=== PATIENT | male | born 1975 | race Two or more races ===

== ENCOUNTER 2016-12-28 09:39 | Emergency (ER) | payer OTHER ==
[2016-12-28 09:50] VITALS: BP 136/77; PULSE 82; TEMP 98; BMI 22.9
[2016-12-28] MEDS ORDERED: IBUPROFEN 600 MG TABLET (FP) PO ONE ×2 (11:31→11:34)
--- NOTE | 2016-12-28 13:08 | PDOC ---
History of Present Illness - General Chief Complaint: Injury Stated Complaint: RT SIDE PAIN Time Seen by Provider: 12/28/16 11:04 History Source: Patient Exam Limitations: No Limitations - History of Present Illness Initial Comments: 12/28/16 13:04 CC right chest wall pain post heavy work object fell on same yesterday Occurred: reports: yesterday Severity: reports: moderate Pain Location: reports: chest Method of Injury: Yes: direct blow Past History - Past Medical History Allergies/Adverse Reactions: Allergies Allergy/AdvReac Type Severity Reaction Status Date / Time No Known Allergies Allergy Verified 12/28/16 09:44 Home Medications: Ambulatory Orders NK [No Known Home Medication] 12/28/16 Other medical history: none - Psycho/Social/Smoking Cessation Hx Anxiety: No Suicidal Ideation: No Smoking History: Never smoked Have you smoked in the past 12 months: No Information on smoking cessation initiated: No Hx Alcohol Use: No Drug/Substance Use Hx: No Substance Use Type: None Review of Systems - Review of Systems Constitutional: No: Chills, Fever, Malaise HEENTM: Yes: Symptoms Reported Respiratory: No: Symptoms reported, Cough Cardiac (ROS): No: Symptoms Reported ABD/GI: No: Symptoms Reported : No: Symptoms Reported Musculoskeletal: No: Symptoms Reported Integumentary: No: Symptoms Reported *Physical Exam - Vital Signs Last Vital Signs Temp Pulse Resp BP Pulse Ox 98.0 F 82 16 136/77 97 12/28/16 09:46 12/28/16 09:46 12/28/16 09:46 12/28/16 09:46 12/28/16 09:46 - Physical Exam General Appearance: Yes: Appropriately Dressed. No: Apparent Distress HEENT: positive: TMs Normal, Pharynx Normal Neck: positive: Supple, Lymphadenopathy (R), Lymphadenopathy (L). negative: Tender, Rigid Respiratory/Chest: positive: Chest Tender (tender anterior right chest wall,at level of nipple line; no brusing), Lungs Clear Cardiovascular: positive: Regular Rhythm, Regular Rate. negative: Murmur Gastrointestinal/Abdominal: positive: Normal Bowel Sounds, Soft. negative: Tender ED Treatment Course - RADIOLOGY Radiology Studies Ordered: Category Date Time Status RIBS RIGHT SIDE [RAD] Stat Radiology 12/28/16 11:35 Completed - Medications Given in the ED: ED Medications Discontinued Medications Generic Name Dose Route Start Last Admin Trade Name Isela PRN Reason Stop Dose Admin Ibuprofen 600 mg 12/28/16 11:34 12/28/16 11:38 Motrin - PO 12/28/16 11:35 600 mg ONCE ONE Administration Medical Decision Making - Medical Decision Making 12/28/16 13:06 rib series= no PTX. no fXs *DC/Admit/Observation/Transfer Diagnosis at time of Disposition: Contusion of right chest wall Qualifiers: Encounter type: initial encounter Qualified Code(s): S20.211A - Contusion of right front wall of thorax, initial encounter - Discharge Dispostion Disposition: HOME Condition at time of disposition: Stable Admit: No - Patient Instructions Additional Instructions: advil for pain; rest; no lifting - Post Discharge Activity Work/School Note: Back to Work
== END 2016-12-28 13:13 | disposition home or self-care (01) ==
LOC: JERFT 09:39
DX: S20.211A Contusion of right front wall of thorax, initial encounter (principal); W20.8XXA Other cause of strike by thrown, projected or falling object, initial encounter; Y93.89 Activity, other specified; Y92.63 Factory as the place of occurrence of the external cause; Y99.0 Civilian activity done for income or pay
CPT/HCPCS: 71101-TC-RT; 99281-25